=== PATIENT | female | born 2000 | race Caucasian/White ===

== ENCOUNTER 2022-08-11 19:15 | Emergency (ER) | payer MEDICAID, SELFPAY ==
[2022-08-11 19:16] VITALS: BP 133/89; PULSE 125; RESP 18; TEMP 36.6; O2SAT 98; BMI 21.2
--- NOTE | 2022-08-11 19:44 | EDS_ITS ---
HPI History of Present Illness Chief Complaint: Substance Abuse Informant: patient Narrative Narrative: Patient presents feeling very anxious and having trouble with her thoughts for the past 4 days, and coming down from all the drugs I have used for the past 3 years. Prior to this, she stopped using mushrooms which she was abusing in order to get high consistently for the past 3 weeks. She denies using any IV drugs. Prior to this, she was using other substances. She states she has used drugs for 3 years or so fairly consistently, and now she wants to get off of them and tried to go to outpatient rehab today, but they were closed and is going back tomorrow. She states she is here to make sure that medically she is okay. PFSH PFSH Medical History no medical history no medical history Home Medications hydroxyzine pamoate 50 mg capsule (Vistaril) 50 mg PO TID PRN anxiety #20 caps 08/11/22 [Rx Last Taken Unknown] Allergy/AdvReac Type Severity Reaction Status Date / Time No Known Allergies Allergy Verified 08/11/22 19:18 Surgical History no surgical history no surgical history Social History (Updated 08/11/22 @ 19:[address] Jimenez Jacobsen MD) Smoking Status: Current every day smoker tobacco type: cigarettes substance use type: marijuana, crack/cocaine and other details: acid in past; mushrooms most recently; No IVDU ROS ROS ED Constitutional Constitutional ED: Denies chills or fever(s) Eyes Eyes: Denies change in vision or diplopia ENT ENT ED: Denies rhinorrhea or sore throat Cardiovascular Cardiovascular: Denies chest pain or palpitations Respiratory/Chest Respiratory/Chest: Denies cough or dyspnea Gastrointestinal Gastrointestinal: Denies abdominal pain, diarrhea, nausea or vomiting Genitourinary Genitourinary ED: Denies dysuria or hematuria Musculoskeletal Musculoskeletal: Denies back pain or neck pain Integumentary Denies abscess or rash Neurologic Neurologic: Reports paresthesias RUE and LUE; Denies headache(s) or weakness Psychiatric Psychiatric: Reports anxiety and panic attacks; Denies suicidal ideation or suicidal thoughts EXAM Physical Exam Const Vital Signs: 08/11/22 19:16 08/11/22 20:18 Temperature 97.9 F Temperature Source Temporal Pulse Rate 125 H Respiratory Rate 18 16 Blood Pressure 133/89 H Blood Pressure Mean 103 Pulse Ox 98 Oxygen Delivery Method Room Air Positive well nourished and well developed General Appearance ED: well developed and NAD HEENT Reports moist mucous membranes normocephalic and atraumatic Eyes PERRL and EOMs intact bilaterally Neck full ROM and supple Resp normal respiratory effort and clear to auscultation bilaterally Cardio regular rate, regular rhythm and no murmurs GI non-tender and non-distended Auscultation: normoactive bowel sounds Palpation: soft Back/Spine no CVA tenderness General Back: other FROM Extremity normal to inspection General Extremety ED: Negative for edema, pulses abnormal or tenderness General Extremity: Negative for edema or pulses abnormal Neuro oriented x3, CN's II-XII intact bilaterally and no sensory deficits noted Sensorium / Orientation: awake and alert Motor Exam: strength 5/5 throughout Psych thought process normal Mood & Affect: anxious Skin no rashes or lesions noted and no wounds MDM MDM MDM Narrative Medical decision making narrative: Patient states she has not been caring for herself, eating and drinking well. With the tingling that she has in her face and upper extremities which is symmetric, I obtained some lab work but I do not think she needs a CT scan. She is not anemic to suggest a B12 deficiency, she has a minor nonspecific leukocytosis without a left shift, and the rest of her work-up is normal including her liver enzymes and she is not jaundiced clinically. She was given Vistaril, and on reevaluation she states she feels a lot better and is appreci ative. She is medically cleared to follow-up with rehab which she is going to do as an outpatient tomorrow. Prescribed Vistaril to use as needed and advised to avoid drugs which she is intending to do. Lab Data Attestation: I reviewed the patient's lab results. Labs: Laboratory Results - last 24 hr 08/11/22 08/11/22 19:54 19:54 WBC 12.0 H RBC 4.84 Hgb 13.7 Hct 42.4 MCV 87.6 MCH 28.3 MCHC 32.3 RDW Std Deviation 42.4 RDW Coeff of Francisco J 13.2 Plt Count 247 MPV 10.2 Immature Gran % (Auto) 0.200 Neut % (Auto) 57.3 Lymph % (Auto) 33.5 [place] % (Auto) 6.8 Eos % (Auto) 1.2 Baso % (Auto) 1.0 Absolute Neuts (auto) 6.9 Absolute Lymphs (auto) 4.03 Nucleated RBC % 0 Sodium 140 Potassium 3.7 Chloride 107 Carbon Dioxide 26.0 Anion Gap 7 BUN 12 Creatinine 0.98 Estim Creat Clear Calc 75.75 Est GFR (MDRD) Af Amer 93 Est GFR (MDRD) Non-Af 77 BUN/Creatinine Ratio 12.3 Glucose 122 H Calcium 9.1 Total Bilirubin 0.40 AST 13 L ALT 15 Alkaline Phosphatase 69 Total Protein 7.5 Albumin 4.1 Globulin 3.4 Albumin/Globulin Ratio 1.2 Discharge Plan Triage Chief Complaint: Substance Abuse ED Provider: Jimenez Jacobsen Dx/Rx/DC Orders Clinical Impression: Anxiety, Polysubstance abuse, Drug withdrawal Instructions: ED Anxiety Reaction, ED Drug Abuse Prescriptions: New hydroxyzine pamoate [Vistaril] 50 mg capsule 50 mg PO TID PRN (Reason: anxiety) Qty: 20 0RF Primary Care Provider: Care Physician,No Primary Referrals: NOT,DEFINED [Non-Staff] - [facility] [Non-Staff] - (or outpatient rehab program of your choice) Disposition Disposition: Home, Self Care
[2022-08-11] MEDS: hydrOXYzine PAM 25 MG Capsule 75 MG PO (20:00)
--- NOTE | 2022-08-11 20:07 | CM.ED ---
KETTY Note Referral Source: Case Find SW met with patient and patient gave verbal consent to speak to her in the presence of her visitor in the room. Patient said that she came to the ED to make sure I am medically ok. Reports she went to [facility] today for an assessment and they told her it was the end of the day and they need 4-6 hours for evaluation so she plans to follow up with them tomorrow as a walk in. Patient denied SI/HI. Patient reports use of mushroom a little bit and cocaine. When asked how much cocaine she said that she was not able to quantify as it wasn't mine. SW provided patient with treatment navigator information as well as [facility] resource list. Plan: Resources provided Alysia JIMENEZ
[2022-08-11 20:08] LABS: Absolute Lymphocyte Count 4.03 X10^3/uL (0.83-4.51); Absolute Neutrophil Count 6.9 X10^3/uL (2.0-7.7); Basophil# 0.12 X10^3/uL; Eosinophil# 0.15 X10^3/uL; Eosinophils% 1.2 % (0-5); Hematocrit 42.4 % (37-47); Hemoglobin 13.7 g/dL (12.0-15.0); Lymphocyte # 4.03 X10^3/ul (0.83-4.51); Lymphocyte % 33.5 % (19-41); Mean Corp Hgb Conc 32.3 g/dL (32-36); Mean Corpuscular Hgb 28.3 pg (27.0-32.0); Mean Corpuscular Volume 87.6 fL (81-99); Mean Platelet Vol. 10.2 fl (6.2-12.0); Monocyte# 0.82 X10^3/uL; Monocyte% 6.8 % (0-10); NRBC Flagged by Analyzer 0 % (0-5); Neutrophil % 57.3 % (47-70); Platelet Count 247 K/mm3 (150-450); RBC Distribution Width CV 13.2 % (11.6-14.6); RBC Distribution Width SD 42.4 fl (35.1-43.9); Red Blood Count 4.84 M/mm3 (4.2-5.4)
[2022-08-11 20:18] VITALS: RESP 16
[2022-08-11 20:33] LABS: ALB/GLOB Ratio 1.2 RATIO (0.9-2.4); AST(SGOT) 13 U/L (15-37); Alanine Aminotransfer ALT/SGPT 15 U/L (13-56); Albumin, Serum 4.1 g/dL (3.2-5.0); Alkaline Phosphatase 69 U/L (45-117); Anion Gap 7 (5-15); BUN 12 mg/dL (7-18); BUN/Creat Ratio 12.3 RATIO (10-20); Calcium,Total 9.1 mg/dL (8.5-10.1); Chloride 107 mmol/L (98-107); Creatinine, Serum 0.98 mg/dL (0.55-1.02); EST Glomerular Filtration Rate 77 mL/min (>60); Est Glom Filt Rate - Afr Amer 93 mL/min (>60); Estimated Creatinine Clearance 75.75 ml/min; Globulin 3.4 g/dL (2.2-4.2); Glucose 122 mg/dL (74-106); Potassium 3.7 mmol/L (3.5-5.1); Protein, Total 7.5 g/dL (6.4-8.2); Sodium Level 140 mmol/L (136-145)
[2022-08-11 21:00] VITALS: RESP 16
[2022-08-11 21:29] VITALS: RESP 16
== END 2022-08-11 21:37 | disposition home or self-care (01) ==
PROVIDERS: Emergency Provider Emergency Medicine; Visit Provider Emergency Medicine
DX: F19.139 Other psychoactive substance abuse with withdrawal, unspecified (principal); F41.9 Anxiety disorder, unspecified; F17.210 Nicotine dependence, cigarettes, uncomplicated
CPT/HCPCS: 80053; 85025; 99283